=== PATIENT | male | born 1965 | race Caucasian/White ===

== ENCOUNTER 2017-08-21 10:04 | Emergency (ER) | payer OTHER ==
[~2017-08-21] VITALS: Ht 160 cm; Wt 74.8 kg
[2017-08-21 10:34] VITALS: BP 120/71
--- NOTE | 2017-08-21 10:55 | NUR ---
52/M BIB SELF C/O PAIN UNDER R BREAST RADIATING TO UNDERARM X3DAYS. STS WAS MOVING A FRIDGE ON FRIDAY. TAKING UNK NAME OF MED FOR PAIN PER PT. HX DENIES. AX DENIES. DENIES N/V/D; SKIN IS PINK/WARM/DRY; AAOX4 WITH EVEN AND STEADY GAIT; LUNGS CLEAR BL; HR EVEN AND REGULAR; PT DENIES ANY FEVER, CP, SOB, OR COUGH AT THIS TIME; PATIENT STATES PAIN OF 5/10 AT THIS TIME; VSS; PATIENT POSITIONED FOR COMFORT; HOB ELEVATED; BEDRAILS UP X2; BED DOWN. ER MD MADE AWARE OF PT STATUS.
[2017-08-21 11:23] VITALS: BP 113/71
--- NOTE | 2017-08-21 11:23 | NUR ---
Patient discharged with v/s stable. Written and verbal after care instructions given and explained. Patient alert, oriented and verbalized understanding of instructions. Ambulatory with steady gait. All questions addressed prior to discharge. ID band removed. Patient advised to follow up with PMD. Rx of PROMETHAZINE given. Patient educated on indication of medication including possible reaction and side effects. Opportunity to ask questions provided and answered.
== END 2017-08-21 11:23 | disposition home or self-care (01) ==
LOC: MED 10:04
DX: J06.9 Acute upper respiratory infection, unspecified (principal)
CPT/HCPCS: 71010; 93005; 99284

== ENCOUNTER 2020-01-14 11:00 | Emergency (ER) | payer OTHER ==
[~2020-01-14] VITALS: Ht 160 cm; Wt 74.4 kg
[2020-01-14 11:07] VITALS: BP 115/70
--- NOTE | 2020-01-14 11:07 | NUR ---
54 Y/O M C/C BILATERAL FOOT PAIN PROGRESSIVELY GETTING WORSE WITH PAIN, PER PT CHRONIC CONDITION BUT HAS NOTICED MORE FREQUENT PAIN IN THE PREVIOUS DAYS. PT DENIES WOUNDS OR TRAUMA. PER PT BELIEVES WORK RELATED PAIN DUE TO GOING UP STAIRS CONSTANTLY. PT NKA. HX DM,HDL. RX METFORMIN,ATORVASTATIN. NO NVD. CMS/ROM WNL. SIDE RAIL X1.
--- NOTE | 2020-01-14 11:20 | NUR ---
ERMD AT BEDSIDE
[2020-01-14 11:26] VITALS: BP 115/70
--- NOTE | 2020-01-14 11:26 | NUR ---
Patient discharged with v/s stable. Written and verbal after care instructions given and explained. Patient alert, oriented and verbalized understanding of instructions. Ambulatory with steady gait. All questions addressed prior to discharge. ID band removed. Patient advised to follow up with PMD. Rx of IBUPROFEN,GABAPENTIN given. Patient educated on indication of medication including possible reaction and side effects. Opportunity to ask questions provided and answered.
== END 2020-01-14 11:26 | disposition home or self-care (01) ==
LOC: MED 11:00
DX: E11.40 Type 2 diabetes mellitus with diabetic neuropathy, unspecified (principal); G89.29 Other chronic pain; M79.672 Pain in left foot; M79.671 Pain in right foot
CPT/HCPCS: 99283